=== PATIENT | male | born 1995 | race Caucasian/White ===

== ENCOUNTER 2017-03-09 12:33 | Emergency (ER) | payer OTHER ==
[2017-03-09] MEDS ORDERED: IBUPROFEN 600 MG TABLET PO STA (13:28)
[2017-03-09] MEDS ORDERED: IBUPROFEN 600 MG TABLET PO ONE (13:30)
== END 2017-03-09 13:37 | disposition home or self-care (01) ==
DX: S93.492A Sprain of other ligament of left ankle, initial encounter (principal); X50.1XXA Overexertion from prolonged static or awkward postures, initial encounter
CPT/HCPCS: 73610; 99283; A9270

== ENCOUNTER 2018-06-01 08:47 | Emergency (ER) | payer OTHER ==
[2018-06-01 09:07] VITALS: BP 166/106
--- NOTE | 2018-06-01 09:44 | ED Physician Documentation ---
PD HPI SKIN - Stated complaint Stated Complaint: BUMP ON TAILBONE - Chief complaint Chief Complaint: Wound - History obtained from History obtained from: Patient - History of Present Illness Timing - onset: How many weeks ago (2 or 3.) Timing - details: Still present Location: Other (buttock) Quality / character: Swelling Similar symptoms before: No diagnosis (History of similar condition 8 or 9 years ago.) - Additional information Additional information: The patient is an otherwise healthy 23-year-old active [employer] male who presents with a "cyst on my tailbone." He first noticed it 2 or 3 weeks ago, and states that a few days ago it was draining, but now it has become more swollen again. He denies fever. He denies any traumatic injury. He has a history of similar condition 8 or 9 years ago. He denies any past history of MRSA. Review of Systems Constitutional: denies: Fever Respiratory: denies: Dyspnea, Cough GI: denies: Nausea, Vomiting Skin: reports: Lesions (Draining, swollen area in coccygeal region.) Musculoskeletal: denies: Back pain, Extremity swelling Neurologic: denies: Headache PD PAST MEDICAL HISTORY - Past Medical History Past Medical History: No Musculoskeletal: None - Past Surgical History Past Surgical History: No Ortho: Other - Present Medications Home Medications: Ambulatory Orders Medication Instructions Recorded Confirmed Ibuprofen 800 mg PO TID #20 tablet 03/09/17 cephALEXin [Cephalexin] 500 mg PO TID #21 tablet 06/01/18 - Allergies Allergies/Adverse Reactions: Allergies Allergy/AdvReac Type Severity Reaction Status Date / Time No Known Drug Allergies Allergy Verified 03/09/17 12:39 - Social History Does the pt smoke?: No Smoking Status: Never smoker Does the pt drink ETOH?: Yes Does the pt have substance abuse?: No - Immunizations Immunizations are current?: Yes PD ED PE NORMAL - Vitals Vital signs reviewed: Yes (Initially hypertensive.) - General General: Alert and oriented X 3, Well developed/nourished - HEENT HEENT: Atraumatic - Respiratory Respiratory: No respiratory distress - Back Back: No spinal TTP - Derm Derm: Other (A swollen tender area is located in the coccygeal region, just to the left side of the gluteal crease. There is associated erythema, and tenderness to palpation.) - Neuro Neuro: Alert and oriented X 3, Normal speech Results - Vitals Vitals: Oxygen O2 Source Room air - Labs Labs: Microbiology 06/01/18 09:20 Wound Culture - Final Abscess Beta Hemolytic Strep Group F Procedures - Abscess I&D (location) gluteal crease Preparation: Betadine, Lidocaine 1%, With epi Incision: Incised with scalpel, Purulent drainage, Irrigated, Culture obtained Other: Pt tolerated well, Dressing applied, Antibiotic prescribed PD MEDICAL DECISION MAKING - ED course Complexity details: considered differential, d/w patient ED course: The patient's presentation is significant for abscess in the gluteal region. Treatment in the emergency department included incision and drainage. Culture swab was obtained, and results are pending. He is being discharged with a prescription for cephalexin. I discussed with him the expected course of illness, antibiotic treatment and outpatient follow-up, as well as potentially worrisome signs or symptoms that should prompt reevaluation in the emergency department. - Sepsis Event Vital Signs: Oxygen O2 Source Room air Departure - Departure Disposition: 01 Home, Self Care Clinical Impression: Abscess Condition: Stable Instructions: ED Abscess IandD Follow-Up: ANTONY Collins [Provider Group] Prescriptions: cephALEXin [Cephalexin] 500 mg PO TID #21 tablet Comments: Take cephalexin 3 times daily as prescribed. Soak the affected area at least twice daily with warm soapy water. You can use Tylenol or ibuprofen if needed for discomfort. Follow up with your primary physician within 1 week. Call to schedule appointment. Return to the emergency department if you develop increasing pain or swelling, or otherwise worsening symptoms. Discharge Date/Time: 06/01/18 10:00
== END 2018-06-01 10:00 | disposition home or self-care (01) ==
LOC: ED 08:47
DX: L02.31 Cutaneous abscess of buttock (principal)
CPT/HCPCS: 10080; 87070; 87205; 99283